=== PATIENT | female | born 1975 | race Caucasian/White ===

== ENCOUNTER 2018-02-20 10:58 | Emergency (ER) | payer SELFPAY ==
[2018-02-20 11:18] VITALS: TEMP 97.8
[2018-02-20] MEDS ORDERED: ONDANSETRON INJ 4 MG/2 ML VIAL IV ONE (11:22)
[2018-02-20] MEDS ORDERED: SODIUM CHLORIDE 0.9% 1000ML 1,000 ML IVS ONE ×2 (11:22→13:02)
[2018-02-20] MEDS ORDERED: ONDANSETRON INJ 4 MG/2 ML VIAL ONE (11:23)
--- NOTE | 2018-02-20 11:29 | ED.PDOC ---
History of Present Illness - General Chief Complaint: GI Problem Stated Complaint: N/V, blood stool Time Seen by Provider: 02/20/18 11:11 Source: patient Exam Limitations: no limitations - History of Present Illness Initial Comments: patient comes in with a one-week history of feeling abdominal distention, generalized swelling, nausea and vomiting. Patient has been unable to keep anything down the last couple of days and she's had a couple of loose stools. Patient states she did notice today that when she had a loose stool there was a little bit of blood mixed in the stool itself but no black or tarry stools is reported. She states her abdomen at times will have start shooting pains but it 's not constant and primarily she is is uncomfortable she cannot keep it down and she feels so distended. She had no recent travel or questionable by mouth intake. She's had no sick contacts. She does have a history of hepatitis C with elevated liver function tests. She admits that last month she has been increasing her alcohol intake and she is back up to 6 beers a day. 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 Patient does take ibuprofen on a daily basis for generalized aches and pains. Patient has no fever, chills, cough or cold symptoms. She denies chest pain or shortness of breath. Patient has not had any urine output today and she feels very weak. Timing/Duration: 1 week Severity: severe Improving Factors: nothing Worsening Factors: eating Associated Symptoms: nausea/vomiting Allergies/Adverse Reactions: Allergies NO KNOWN ALLERGY Allergy (Verified 02/20/18 11:12) Home Medications: Ambulatory Orders Citalopram Hydrobromide [Celexa] 20 mg PO DAILY 02/20/18 Lisinopril & Hydrochlorothiazi [Lisinopril/Hctz 10-12.5 mg] 1 tab PO DAILY 02/20 Review of Systems - Review of Systems Constitutional: States: weakness. Denies: chills, fever EENTM: Denies: eye pain, ear pain, nose pain, throat pain Respiratory: Denies: cough Cardiology: Denies: chest pain, edema, palpitations, syncope Gastrointestinal/Abdominal: States: abdominal pain, diarrhea, nausea, vomiting Genitourinary: States: no symptoms reported. Denies: dysuria, frequency, hematuria Musculoskeletal: States: no symptoms reported Skin: States: no symptoms reported Neurological: States: no symptoms reported Past Medical History (General) - Patient Medical History Hx Stroke: No Hx Congestive Heart Failure: No Hx Hypertension: Yes Hx Diabetes: No Hx Hepatitis C: Yes Hx MRSA: Yes Surgical History: no surgical history - Vaccination History Hx Influenza Vaccination: Yes - Social History Hx Tobacco Use: Yes Hx Alcohol Use: Yes - 6 pack a day usually (02/20/18) Hx Substance Use: Yes - Quit 2016 - Female History Patient is a Female of Child Bearing Age (10 -59 yrs old): Yes Patient : No Family Medical History - Family History Mother Family History: Unknown Living Status: Still Living Physical Exam - Physical Exam General Appearance: Ill Appearing Eye Exam: bilateral normal Ears, Nose, Throat: hearing grossly normal, normal ENT inspection, normal pharynx Neck: non-tender, full range of motion, supple, normal inspection Respiratory: chest non-tender, lungs clear, normal breath sounds, no respiratory distress Cardiovascular/Chest: normal peripheral pulses, regular rate, rhythm, no edema, no gallop, no JVD, no murmur Peripheral Pulses: radial,right: 2+, radial,left: 2+ Gastrointestinal/Abdominal: soft, other - no ascities, non-distended, positive hypoactive BS, TTP suprapubically Rectal Exam: normal exam, normal rectal tone, heme positive stool, other - generalized irriation to the rectal area with warts but no hemorrhoids Back Exam: normal inspection, no CVA tenderness Extremity: normal range of motion Neurologic: alert, oriented x 3 Skin Exam: normal color Progress - Progress Progress: 02/20/18 12:17 02/20/18 11:22 Sodium Chloride 0.9% 1000ML [Ns 1000 ml] 1,000 ml IVS ONCE Laboratory Results WBC 6.5 K/mm3 (4.8-10.8) 02/20/18 11:22 RBC 4.54 M/mm3 (4.20-5.40) 02/20/18 11:22 Hgb 15.5 gm/dL (12.0-16.0) 02/20/18 11:22 Hct 44.3 % (36.0-47.0) 02/20/18 11:22 MCV 97.5 fl (81.0-99.0) 02/20/18 11:22 MCH 34.0 pg (27.0-31.0) H 02/20/18 11:22 MCHC 34.9 g/dL (33.0-37.0) 02/20/18 11:22 RDW 18.6 % (11.5-14.5) H 02/20/18 11:22 Plt Count 235 K/mm3 (130-400) 02/20/18 11:22 MPV 7.3 fl (7.40-10.4) L 02/20/18 11:22 Absolute Neuts (auto) 4.70 K/uL (1.8-6.8) 02/20/18 11:22 Absolute Lymphs (auto) 1.20 K/uL (1.0-3.4) 02/20/18 11:22 Absolute Monos (auto) 0.60 K/uL (0.2-0.8) 02/20/18 11:22 Absolute Eos (auto) 0.00 K/uL (0.0-0.4) 02/20/18 11:22 Absolute Basos (auto) 0.10 K/uL (0.0-0.1) 02/20/18 11:22 Neutrophils % 71.5 % (42.0-78.0) 02/20/18 11:22 Lymphocytes % 17.9 % (20.0-50.0) L 02/20/18 11:22 Monocytes % 8.9 % (2.0-9.0) 02/20/18 11:22 Eosinophils % 0.6 % (1.0-5.0) L 02/20/18 11:22 Basophils % 1.1 % (0.0-2.0) 02/20/18 11:22 Sodium 135 mmol/L (135-145) 02/20/18 11:22 Potassium 3.6 mmol/L (3.6-5.0) 02/20/18 11:22 Chloride 104 mmol/L (101-111) 02/20/18 11:22 Carbon Dioxide 22 mmol/L (21-31) 02/20/18 11:22 Anion Gap 12.6 (12-18) 02/20/18 11:22 BUN 12 mg/dL (7-18) 02/20/18 11:22 CreatinineP 0.62 mg/dL (0.6-1.3) 02/20/18 11:22 BUN/Creatinine Ratio 19.4 (10-20) 02/20/18 11:22 Random Glucose 112 mg/dL (70-105) H 02/20/18 11:22 Serum Osmolality 270.6 mOsm/L (275-295) L 02/20/18 11:22 Calcium 8.2 mg/dL (8.4-10.2) L 02/20/18 11:22 Total Bilirubin 0.7 mg/dL (0.2-1.0) 02/20/18 11:22 AST 63 IU/L (10-42) H 02/20/18 11:22 ALT 33 IU/L (10-60) 02/20/18 11:22 Alkaline Phosphatase 132 IU/L (42-121) H 02/20/18 11:22 Serum Total Protein 7.2 gm/dL (6.4-8.2) 02/20/18 11:22 Albumin 3.5 g/dl (3.2-5.5) 02/20/18 11:22 Globulin 3.7 gm/dL (2.3-3.5) H 02/20/18 11:22 Albumin/Globulin Ratio 0.9 (1.1-1.9) L 02/20/18 11:22 Amylase 42 U/L (28-100) 02/20/18 11:22 Lipase 23 U/L (22-51) 02/20/18 11:22 Serum HCG, Qual Negative 02/20/18 11:25 Urine Color Yellow (Yellow) 02/20/18 12:05 Urine Appearance Clear (Clear) 02/20/18 12:05 Urine pH 6.0 (4.5-7.8) 02/20/18 12:05 Ur Specific [place] >= 1.030 (1.005-1.030) 02/20/18 12:05 Urine Protein Trace mg/dL 02/20/18 12:05 Urine Glucose (UA) Negative mg/dL (Negative) 02/20/18 12:05 Urine Ketones Negative mg/dL (NEGATIVE) 02/20/18 12:05 Urine Blood Negative (Negative) 02/20/18 12:05 Urine Nitrite Negative 02/20/18 12:05 Urine Bilirubin Negative (NEGATIVE) 02/20/18 12:05 Urine Urobilinogen 1.0 mg/dL (0.2-1.0) 02/20/18 12:05 Ur Leukocyte Esterase Negative (Negative) 02/20/18 12:05 Urine RBC 0 /hpf 02/20/18 12:05 Urine WBC 0 /hpf 02/20/18 12:05 Ur Epithelial Cells 3-5 /hpf 02/20/18 12:05 Urine Bacteria Rare 02/20/18 12:05 02/20/18 13:36 Patient is much better and tolerating po intake after IVF. Discussed her positive stool for blood and she will follow up with her GI doctor next week and will discuss. Slow return to normal diet discussed. Departure - Departure Clinical Impression: Gastroenteritis, Dehydration Disposition: Discharge to Home or Self Care Condition: Good Departure Forms: ED Discharge - Pt. Copy, Patient Portal Self Enrollment Diet: bland diet Activity: increase activity as tolerated Home Medications: Ambulatory Orders Citalopram Hydrobromide [Celexa] 20 mg PO DAILY 02/20/18 Lisinopril & Hydrochlorothiazi [Lisinopril/Hctz 10-12.5 mg] 1 tab PO DAILY 02/20 Additional Instructions: follow up with GI for positive blood in stool next week. Patient should return to ER for return of emesis, abdominal pain, or increased bleeding.
--- NOTE | 2018-02-20 11:49 | RAD ---
PROCEDURE: Abdomen Flat Upright Clinical History: distention Indication: Same as above Comparison: None Technique: 3.0 views of the abdomen and pelvis were done. Findings: There is no gross evidence of free air in the abdomen or the pelvis . The small and large bowel gas pattern does not show any evidence of obstruction, ileus or bowel wall thickening. There is no visualization of radiopaque calculi in the outline of the urinary tract. The visualized lung bases are unremarkable . There is no significant constipation. Impression: Unremarkable abdomen and pelvis Location of Interpretation: [id number] Electronically signed by: Mikey Henry MD 02/20/2018 11:48 AM CDT Workstation: [id number]
[2018-02-20 13:59] VITALS: BP 137/77; O2SAT 97
== END 2018-02-20 13:55 | disposition home or self-care (01) ==
LOC: ER 10:58
DX: K52.9 Noninfective gastroenteritis and colitis, unspecified (principal); E86.0 Dehydration; Z86.19 Personal history of other infectious and parasitic diseases; Z87.891 Personal history of nicotine dependence
CPT/HCPCS: 74019; 80053; 81001; 82150; 82270; 83690; 84703; 85025; J2405; J7030

== ENCOUNTER 2018-05-26 20:33 | Emergency (ER) | payer SELFPAY ==
[2018-05-26] MEDS ORDERED: MEPERIDINE HCL 50 MG/ML VIAL ONE (20:38)
[2018-05-26] MEDS ORDERED: SODIUM CHLORIDE 0.9% 1000ML 1,000 ML IVS PRN (20:42)
[2018-05-26] MEDS ORDERED: MEPERIDINE HCL 50 MG/ML VIAL IV ONE (20:44)
[2018-05-26] MEDS ORDERED: LIDOCAINE 1% 50 ML VIAL INJ ONE (20:45)
[2018-05-26] MEDS ORDERED: CHLORHEXIDINE GLUCONATE 4 % 15 ML UD TOP ONE ×2 (20:47→21:12)
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
[2018-05-26] MEDS ORDERED: SODIUM CHLORIDE 0.9% 1000ML 1,000 ML IVS ONE (21:55)
[2018-05-26] MEDS ORDERED: SULFA/TRIMETH 800/160 (DS) TAB 1 EA TAB PO ONE (21:56)
--- NOTE | 2018-05-26 23:08 | RAD ---
EXAM DESCRIPTION: Chest,1 View CLINICAL HISTORY: 43 years Female, medical clearance COMPARISON: None FINDINGS: No consolidation. No pneumothorax. No significant pleural effusion. Cardiomediastinal silhouette is unremarkable. Osseous structures are unremarkable. IMPRESSION: No acute findings. Electronically signed by: Diony Mcnair MD 05/26/2018 11:07 PM CDT
--- NOTE | 2018-05-26 23:21 | CT ---
CT ABDOMEN PELVIS WITHOUT IV CONTRAST Exam date: 05/26/2018 9:39 PM CDT Comparison: None Indication: Abdominal pain and increased girth Technique: Multiple helical axial images were obtained through the abdomen and pelvis without intravenous contrast. Sagittal and coronal reformatted images are reviewed as well. All CT scans at this facility use dose modulation, iterative reconstruction, and/or weight-based dosing when appropriate to reduce radiation dose to as low as reasonably achievable. Findings: Lung bases: A small hiatal hernia is noted. Liver: Homogenous attenuation is demonstrated. Gallbladder/biliary: Gallbladder appears unremarkable. No calcified gallstones. No evidence of biliary ductal dilatation. Pancreas: Unremarkable. Spleen: Unremarkable. Adrenals: Unremarkable. Kidneys and ureters: No evidence of renal or ureteral stones. No hydronephrosis. Bladder: Bladder appears moderately distended but otherwise unremarkable. Pelvic organs: There is a 4.3 cm x 2.5 cm mildly lobulated cystic-appearing structure in the right adnexal region with soft small tissue component not excluded. Bowel: No evidence of bowel obstruction. No bowel wall thickening. Appendix appears unremarkable. Peritoneum: No free air. No significant free fluid. Lymph nodes: Unremarkable. Vasculature: Unremarkable. Soft tissues: Unremarkable. Bones: Sclerosis and possible partial fusion along the left sacroiliac joint noted. There is suggestion of a remote fracture involving the right transverse process of L3. Impression: 1. No obvious acute process within the abdomen or pelvis. 2. Lobulated cystic-appearing structure in the right adnexal region presumably arising from the right ovary measuring up to 4.3 cm with underlying soft tissue component not excluded, nonemergent follow-up ultrasound recommended. 3. Sclerosis along the left sacroiliac joint with possible partial fusion suggestive of prior history of sacroiliitis. Electronically signed by: Diony Mcnair MD 05/26/2018 11:20 PM CDT
[2018-05-27] MEDS: HYDROcodone 7.5MG/APAP 325MG 1 EA TAB PO ONE (05:19)
[2018-05-27 06:26] VITALS: BP 128/81; TEMP 98.4; O2SAT 97
== END 2018-05-27 05:50 ==
LOC: ER 20:33
DX: R45.851 Suicidal ideations (principal); S61.512A Laceration without foreign body of left wrist, initial encounter; L03.012 Cellulitis of left finger; N83.201 Unspecified ovarian cyst, right side; F32.9 Major depressive disorder, single episode, unspecified; R10.9 Unspecified abdominal pain; F41.9 Anxiety disorder, unspecified; I10 Essential (primary) hypertension; J45.909 Unspecified asthma, uncomplicated; I51.9 Heart disease, unspecified; E07.9 Disorder of thyroid, unspecified; F17.210 Nicotine dependence, cigarettes, uncomplicated; Z86.19 Personal history of other infectious and parasitic diseases; Z86.14 Personal history of Methicillin resistant Staphylococcus aureus infection; X78.9XXA Intentional self-harm by unspecified sharp object, initial encounter; Y92.9 Unspecified place or not applicable
CPT/HCPCS: 36415; 71045; 74176; 80053; 80307; 80320; 80329; 81001; 82550; 82553; 84484; 84703; 85025; 85610; 85730; 93005; J2060; J2175; J7030

== ENCOUNTER → 2020-03-20 | Outpatient (CLI) | payer MEDICARE ==
--- NOTE | 2020-03-20 16:05 | US ---
EXAM DESCRIPTION: Abdomen,Complete: Ultrasound. CLINICAL HISTORY: 45 years FemaleABNORMAL RESULTS OF LIVER FUNCTION STUDIES, CHRONIC HEP C COMPARISON: CT abdomen pelvis April 2018. TECHNIQUE: Transabdominal scanning: grayscale and Doppler modes. FINDINGS: Gallbladder: Normal size with no echogenic stones or sludge. Wall thickness 2.6 mm normal with no fluid. Nontender with transducer pressure. Common bile duct: 4.6 mm normal caliber. Liver: Heterogeneously increased echogenicity. Long axis right lobe 16 cm. Hepatopedal portal vein flow with distal caliber of the tyrese hepatis 9 mm. Normal caliber of the intrahepatic ducts. Smooth capsule and no ascites. Pancreas: Normal size and echogenicity; duct not seen. Abdominal aorta: Total caliber from the proximal segment to the distal bifurcation. IVC: visualized; normal caliber. Spleen normal echogenicity; long axis measurement is 10.4 cm. Right kidney: 9.7 cm long axis with normal cortical thickness and echogenicity. Volume 131.2 mL. No echogenic stones or hydronephrosis.. Left kidney: 11.5 cm long axis with normal cortical thickness and echogenicity. Volume 197 mL. No echogenic stones or hydronephrosis. IMPRESSION: 1. Fatty liver with size upper normal limits. Physiologic ducts and vascularity. Otherwise unremarkable. Pancreas negative. 2. Gallbladder and common bile duct unremarkable. Spleen is negative. 3. No abnormal findings in the kidney sonographically and normal caliber of the major vessels in the abdomen. Electronically signed by: Raza Krishnamurthy MD 03/20/2020 4:03 PM CDT
== END ==
LOC: US 03-18 15:20
PROVIDERS: ATTEND Internal Medicine Gastroenterology
DX: R94.5 Abnormal results of liver function studies (principal); B18.2 Chronic viral hepatitis C; K76.0 Fatty (change of) liver, not elsewhere classified

== ENCOUNTER → 2020-04-17 | Outpatient (CLI) | payer MEDICARE | LOC: LAB.O 14:18 | PROVIDERS: ATTEND Internal Medicine Gastroenterology | DX: Z11.4 Encounter for screening for human immunodeficiency virus [HIV] (principal) ==

== ENCOUNTER → 2020-05-08 | Outpatient (CLI) | payer MEDICARE | LOC: LAB.O 16:35 | PROVIDERS: ATTEND Internal Medicine Gastroenterology | DX: Z11.4 Encounter for screening for human immunodeficiency virus [HIV] (principal) ==

== ENCOUNTER → 2020-09-06 | Outpatient (CLI) | payer MEDICARE | LOC: LAB 12:36 | PROVIDERS: ATTEND Nurse Practitioner Psychiatric/Mental Health | DX: K74.00 Hepatic fibrosis, unspecified (principal); Z79.899 Other long term (current) drug therapy; F33.2 Major depressive disorder, recurrent severe without psychotic features ==